=== PATIENT | female | born 2000 | race Caucasian/White ===

== ENCOUNTER 2024-04-17 17:35 | Emergency (ER) | payer OTHER, SELFPAY ==
[2024-04-17 17:39] VITALS: BP 137/78; PULSE 84; RESP 18; TEMP 37.3; O2SAT 100; BMI 34.3
--- NOTE | 2024-04-17 18:39 | ED_ITS ---
HPI - Female Genitourinary General Chief complaint: OB/Uterine Contractions Stated complaint: , has copper iud, wanting to term Time Seen by Provider: 04/17/24 18:39 Source: patient Mode of arrival: Ambulatory History of Present Illness HPI Narrative: 23-year-old female without any significant past medical history comes into the ED from home for wanting medical . She states that she has a copper IUD in place this was placed approximately 2 years ago, she states that she normally has regular periods every 4 weeks, she states that she was laid proximally 5 days checked her urine prior to arrival and it was positive. 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 She has not having any symptoms such as abdominal pain nausea vomiting vaginal bleeding or discharge. She states that she does not have an OBGYN. She has no other complaints or concerns at this time. Related Data Allergies Allergy/AdvReac Type Severity Reaction Status Date / Time No Known Drug Allergies Allergy Verified 04/17/24 17:39 Review of Systems Review of Systems Narrative: General: Wanting medical pills, Denies fever, chills, weight loss HEENT: Denies headache, eye drainage, eye irritation, head trauma, sore throat, voice change Cardiovascular: Denies any chest pain, palpitations, shortness of breath, tachycardia Respiratory: Denies any shortness of breath, cough, wheeze, stridor GI/: Denies any abdominal pain, nausea, vomiting, diarrhea, bright red blood per rectum, melanotic stools, urinary frequency, urinary retention, dysuria, hematuria MSK: Denies any joint pain, muscle pains, swelling Skin: Denies any rashes, lesions, discoloration Neuro: Denies any headache, lightheadedness, dizziness, fainting, weakness Psych: Denies SI/HI Patient History tobacco type: vaping Exam Narrative Exam Narrative: General: Cooperative, comfortable, well-developed, not in acute distress HEENT: Normocephalic, atraumatic, PERRLA, normal sclera, eyelids normal, Neck: Active full range of motion, atraumatic Chest: Normal to inspection, negative crepitus, no overlying erythema ecchymosis Respiratory: Normal respiratory effort, not in acute respiratory distress, clear to auscultation bilaterally negative cough, wheeze, tachypnea, rhonchi, rales Cardiology: Regular rate rhythm negative gallop, murmur, rubs GI/: Normal to inspection, soft, nonrigid, no tenderness to palpation, exam deferred MSK: Full range of active range of motion of all 4 extremities, atraumatic Skin: No rashes lesions noted Neuro: Alert awake oriented x3, moves all 4 extremities spontaneously, cranial nerves intact, able to answer all questions appropriately follows commands appropriately Psych: Cooperative, negative suicidal or homicidal ideations Initial Vital Signs Initial Vital Signs: Vital Signs Temperature 99.2 F 04/17/24 17:39 Pulse Rate 84 04/17/24 17:39 Respiratory Rate 18 04/17/24 17:39 Blood Pressure 137/78 04/17/24 17:39 Pulse Oximetry 100 04/17/24 17:39 Oxygen Delivery Method Room Air 04/17/24 17:39 Course Vital Signs Vital signs: Vital Signs - 8 hr 04/17/24 17:39 Temperature 99.2 F Pulse Rate 84 Respiratory Rate 18 Blood Pressure 137/78 Pulse Oximetry 100 Oxygen Delivery Method Room Air MDM - Female Genitourinary Differential Diagnosis Differential diagnosis: Likely urinary tract infection and other () MDM Narrative Medical decision making narrative: Patient is a 23-year-old female without any significant past medical history presents for wanting medical . She states that she has an IUD copper that was placed 2 years ago, she states that she normally gets her period every 4 weeks but she missed it for 5 days so checked her urine and it stated that she was . She states that she wants a medical , informed her that we can run her urinalysis as well as blood work to see if she is truly however if this is positive she would need to follow up with an OBGYN. She states that she would rather just follow up with OBGYN if she can not obtain any pills here. She denies any symptoms such as abdominal pain nausea vomiting vaginal bleeding vaginal discharge. She is well-appearing nontoxic. She was given strict return precautions and agrees with the following up with OBGYN in outpatient setting. Discharge Plan Departure Patient Disposition: Home Clinical Impression: Normal Activity Restrictions/Additional Instructions: Please follow up with OBGYN Please read the discharge instructions sheet carefully and bring all papers to all doctor follow-up visits, as it may contain information that your doctor may want to see. Disease processes change and evolve, if your symptoms worsen or if you develop any new symptoms that are concerning to you please return for e valuation. Your evaluation today does not show any evidence of any life- threatening/serious illnesses requiring admission to the hospital or surgery. Please follow-up with your doctor for re-evaluation in approximately 1 day. Seek immediate medical attention for any worrisome symptoms. *If you do not have a primary care provider please contact the [facility] Resource line at [phone]. They will ask some questions about your medical history and help get you set up with a doctor in the community. Referrals: ProviderKalli [Primary Care Provider] - Wendy Hallman DO [Physician] - 3-5 days Stand Alone Forms: Patient Portal/API/Survey
[2024-04-17 18:52] VITALS: BP 138/73; PULSE 74; RESP 18; O2SAT 99
== END 2024-04-17 18:53 | disposition home or self-care (01) ==
PROVIDERS: Emergency Provider Student in an Organized Health Care Education/Training Program
DX: O26.30 Retained intrauterine contraceptive device in pregnancy, unspecified trimester (principal); Z3A.00 Weeks of gestation of pregnancy not specified
CPT/HCPCS: 99281